=== PATIENT | female | born 1990 | race American Indian/Alaskan Native ===

== ENCOUNTER 2016-06-01 22:10 | Emergency (ER) | payer OTHER ==
[2016-06-01 22:18] VITALS: RESP 16
--- NOTE | 2016-06-01 22:22 | C.PDOC ---
History Of Present Illness 25F c/o intermittent anterior left side chest pain for the last month. no exacerbating or reliev fx. lasts up to 15 minutes then goes away. she points to three spots, medial, superior, and lateral to the left breast. she saw her pcp about 3 weeks ago and says she had an ecg and he rec she take naproxen but she has not tried this yet. she takes depo shot. denies any other pmh or meds. denies drugs, cocaine, etoh. denies dvt/pe risk factors. Time Seen by Provider: 06/01/16 22:22 Chief Complaint (Nursing): Chest Pain Past Medical History Vital Signs: Last Vital Signs Temp 98.7 F 06/01/16 23:31 Pulse 76 06/01/16 23:31 Resp 16 06/01/16 23:31 BP 105/68 06/01/16 23:31 Pulse Ox 99 06/01/16 23:31 Family History: States: Other (nc) - Social History Hx Alcohol Use: No Hx Substance Use: No - Immunization History Hx Tetanus Toxoid Vaccination: No Review Of Systems Constitutional: Negative for: Fever, Chills Cardiovascular: Positive for: Chest Pain. Negative for: Edema, Light Headedness Respiratory: Negative for: Cough, Shortness of Breath, Hemoptysis Gastrointestinal: Negative for: Nausea, Vomiting Musculoskeletal: Negative for: Neck Pain, Shoulder Pain Neurological: Negative for: Weakness, Numbness, Headache Physical Exam - Physical Exam Appears: Non-toxic, No Acute Distress Skin: Warm, Dry Head: Atraumatic Eye(s): bilateral: PERRL Oral Mucosa: Moist Neck: Normal ROM Cardiovascular: Rhythm Regular, No Murmur Respiratory: Normal Breath Sounds, No Decreased Breath Sounds, No Accessory Muscle Use, No Rales, No Rhonchi, No Stridor, No Wheezing Gastrointestinal/Abdominal: Soft, No Tenderness Extremity: No Calf Tenderness, No Swelling Pulses: Left Radial: Normal, Right Radial: Normal Neurological/Psych: Oriented x3, Other (no focal deficits) ED Course And Treatment - Laboratory Results Result Diagrams: 06/01/16 22:59 06/01/16 22:59 O2 Sat by Pulse Oximetry: 100 Medical Decision Making Medical Decision Making: ecg- nsr 61, nl axis, nl int, no acute ischemia CxR- no acute findings 2330 pt resting comfortably no distress, no symptoms. I disc w her test results , plan for rx, f/u, and rtr. Disposition - Disposition Referrals: Zeke Weber MD [Medical Doctor] - Disposition: HOME/ ROUTINE Disposition Time: 23:32 Condition: GOOD Additional Instructions: Please follow up with your primary doctor. Take medication as directed for pain. Return to the ER for any worsening symptoms or for any other concerns. Prescriptions: Naproxen 500 mg PO Q12H #8 ect Instructions: Chest Wall Pain (ED) Forms: General Discharge Instructions - Clinical Impression Clinical Impression: Chest wall pain
[2016-06-01 23:02] LABS: BASO % 0.9 % (0.0-2.0); EOS # 0.1 K/uL (0.0-0.7); EOS % 2.3 % (0.0-4.0); LYMPH # 2.9 K/uL (1.0-4.3); LYMPH % 54.5 % (20.0-40.0); MEAN CELL VOLUME 81.9 fL (81.0-99.0); MEAN CORPUSCULAR HEMOGLOBIN 27.3 pg (27.0-31.0); MEAN CORPUSCULAR HGB CONC 33.4 g/dL (33.0-37.0); MEAN PLATELET VOLUME 8.4 fL (7.2-11.7); MONO # 0.4 K/uL (0.0-0.8); MONO % 8.4 % (0.0-10.0); RED CELL DISTRIBUTION WIDTH 13.9 % (11.5-14.5); WHITE BLOOD COUNT 5.3 K/uL (4.8-10.8)
[2016-06-01 23:10] LABS: CHLORIDE 98 mmol/L (98-107); SODIUM 137 mmol/L (132-148)
[2016-06-01 23:12] LABS: AST/SGOT 18 U/L (14-36); CARBON DIOXIDE 24 mmol/L (22-30); GFR AFRICAN-AMERICAN > 60
[2016-06-01 23:13] LABS: ALB/GLOB RATIO 1.2 (1.0-2.1); ALKALINE PHOSPHATASE 47 U/L (38-126); ALT/SGPT 10 U/L (9-52); BLOOD UREA NITROGEN 13 mg/dL (7-17); CALCIUM 8.5 mg/dl (8.6-10.4); GLUCOSE,RANDOM 85 mg/dL (65-105); TOTAL PROTEIN 7.4 g/dL (6.3-8.3)
[2016-06-01 23:32] VITALS: BP 105/68; PULSE 76; TEMP 98.7
[2016-06-02 00:05] VITALS: O2SAT 100
--- NOTE | 2016-06-02 08:53 | RAD ---
HISTORY: Chest pain COMPARISON: No prior. TECHNIQUE: Chest PA and lateral FINDINGS: LUNGS: No active pulmonary disease. PLEURA: No significant pleural effusion identified. No pneumothorax apparent. CARDIOVASCULAR: Normal. OSSEOUS STRUCTURES: Scoliotic curvature of the spine. VISUALIZED UPPER ABDOMEN: Normal. OTHER FINDINGS: None. IMPRESSION: No active disease.
--- NOTE | 2016-06-02 16:24 | CARD ---
APPROVED REPORT EKG Measurement Heart [id number] <Conclusion> Normal sinus rhythm Normal ECG
== END 2016-06-01 23:32 | disposition home or self-care (01) ==
LOC: C.ER 22:10
DX: R07.89 Other chest pain (principal)